=== PATIENT | female | born 1970 | race Two or more races ===

== ENCOUNTER 2017-04-05 08:17 | Day surgery (SDC) | payer BC, OTHER ==
--- NOTE | 2017-04-04 21:50 | Anethesia Preoperative Eval ---
Anesthesia Pre-op PMH/ROS General Date of Evaluation: Apr 04, 2017 Time of Evaluation: 21:48 Anesthesiologist: regina ASA Score: ASA 2 Mallampati Score Class I : Soft palate, uvula, fauces, pillars visible Class II: Soft palate, uvula, fauces visible Class III: Soft palate, base of uvula visible Class IV: Only hard plate visible Mallampati Classification: Class II Surgeon: eric Diagnosis: gi bleed Surgical Procedure: egd/colonoscopy Family History: no anesthesia problems Allergies: Coded Allergies: SULFAMETHOXAZOLE (Verified Allergy, Intermediate, SWELLING, 03/18/13) TRIMETHOPRIM (Verified Allergy, Intermediate, SWELLING, 03/18/13) Medications: see eMAR Past Medical History Endocrine: Reports: hypothyroidism PSxH Narrative: tonsillectomy, uterine fibroid sx Anesthesia Pre-op Phys. Exam Physician Exam Last Vital Signs Date Time Temp Pulse Resp B/P Pulse Ox O2 Delivery O2 Flow Rate FiO2 04/05/17 08:59 97.0 56 18 109/74 99 Room Air Constitutional: NAD Neurologic: CN 2-12 intact Cardiovascular: RRR Respiratory: CTA Gastrointestinal: S/NT/ND Airway Exam Mallampati Score: Class II MO: full Neck: supple TMD: 2fb ROM: full Teeth: intact Anesthesia Pre-op A/P Labs Labs Test 04/05/17 08:34 Urine HCG, Qualitative Negative Risk Assessment & Plan Assessment: asa2 Plan: mac Status Change Before Surgery: No Pre-Antibiotics Drug: na MARGO ADAIR Apr 04, 2017 21:50
[2017-04-05] VITALS (7 sets, daily range): BP systolic 101–113; BP diastolic 61–76
[~2017-04-05] VITALS: Ht 165.1 cm; Wt 56.7 kg
[~2017-04-05 08:17] MED LIST: LR 1000ml 1,000 ML IVLG SCH; SYNTHROID88 MCG ORAL
[2017-04-05] MEDS ORDERED: Propofol 10mg/ml 20ml IV ONE (09:40)
[2017-04-05] MEDS ORDERED: Lidocaine 1% MPF 10mg/ml 5ml ONE (09:40)
[2017-04-05] MEDS ORDERED: LR 1000ml ONE (09:40)
--- NOTE | 2017-04-05 09:41 | Short Stay Surgery H&P ---
History of Present Illness History of Present Illness Chief Complaint Anemia of iron deficiency, rectal bleeding/nausea. TARIQ Galeano is a 46 year old female who was admitted on for Preventive Colon, Gi Bleeding/rectal bleeding/nausea Patient History Allergies: Coded Allergies: SULFAMETHOXAZOLE (Verified Allergy, Intermediate, SWELLING, 03/18/13) TRIMETHOPRIM (Verified Allergy, Intermediate, SWELLING, 03/18/13) PAST MEDICAL HISTORY: (1) Uterine fibroid (2) Hypothyroid (3) Goiter Past Surgeries: Social History: Medication History Scheduled Levothyroxine Sodium* (Synthroid*), 88 MCG ORAL DAILY, (Reported) Review of Systems Cardiovascular: Reports: no symptoms Skeletal: Reports: no symptoms Gastrointestinal: Reports: other Genitourinary: Reports: no symptoms Neurologic: Reports: no symptoms Endocrine: Reports: thyroid Hematologic: Reports: no symptoms Physical Exam Vital Signs Last Vital Signs Date Time Temp Pulse Resp B/P Pulse Ox O2 Delivery O2 Flow Rate FiO2 04/05/17 08:59 97.0 56 18 109/74 99 Room Air Labs Laboratory Tests Test 04/05/17 08:34 Urine HCG, Qualitative Negative Skin: normal HENT: normal Heart: normal Lungs: normal Abdomen: normal Extremities: normal Genitourinary: normal Plan Plan of Care Upper and lower Gi endoscopies Preop Interventions None. Summary of Findings See the final reports. Final Diagnosis: Attestation Are the patient's medical conditions optimized for surgery? Attestation Response: yes JONATHAN REID Apr 05, 2017 09:41
--- NOTE | 2017-04-05 09:43 | Pre-Procedure Note/Attestation ---
Pre-Procedure Note/Attestation Complete Prior to Procedure Planned Procedure: left Procedure Narrative: Endoscopic exam of the upper and the lower GI tract. Indications for Procedure Pre-Operative Diagnosis: R/O peptic ulcer/tumors/colitis etc. Attestation I attest that I discussed the nature of the procedure; its benefits; risks and complications; and alternatives (and the risks and benefits of such alternatives ), prior to the procedure, with the patient (or the patient's legal loss prevention representative). I attest that, if there was a reasonable possibility of needing a blood transfusion, the patient (or the patient's legal loss prevention representative) was given the [place] [facility] [employer] [facility] standardized written summary, pursuant to the [place] Blood Safety Act ([place] Health and Safety Code # 1645, as amended). I attest that I re-evaluated the patient just prior to the surgery and that there has been no change in the patient's H&P, except as documented below: FRANKLINSAID Apr 05, 2017 09:42
[2017-04-05] MEDS ORDERED: LR 1000ml 1,000 ML IVLG SCH (09:58)
[2017-04-05] MEDS ORDERED: Atropine Inj 1mg/10ml Syr IV PRN (10:00)
[2017-04-05] MEDS ORDERED: Midazolam 2mg/2ml Inj IVP PRN (10:00)
[2017-04-05] MEDS ORDERED: DiphenhydrAMINE 50mg/ml Inj IVP PRN (10:00)
[2017-04-05] MEDS ORDERED: Hydromorphone 0.5mg/0.5ml inj IVP PRN (10:00)
--- NOTE | 2017-04-05 10:11 | 48 Hour Post Anesthesia Eval ---
MARGO ADAIR Apr 05, 2017 10:11
--- NOTE | 2017-04-05 10:11 | Immediate Post-Op Evaluation ---
Immediate Post-Op Evalulation Immediate Post-Op Evalulation Procedure: egd/colonoscopy Date of Evaluation: Apr 05, 2017 Time of Evaluation: 10:27 IV Fluids: lr 400ml Blood Products: none Estimated Blood Loss: negligible Blood Pressure Systolic: 108 Blood Pressure Diastolic: 65 Pulse Rate: 77 Respiratory Rate: 18 O2 Sat by Pulse Oximetry: 99 Temperature (Fahrenheit): 98.0 Pain Score (1-10): 0 Nausea: No Vomiting: No Complications none Patient Status: awake, reacts, patent Hydration Status: adequate Drug: MARGO Coleman Apr 05, 2017 10:11
--- NOTE | 2017-04-05 10:11 | Endoscopy Procedure Note ---
Endoscopy Procedure Note Indication for Procedure: Iron defieincy anemia/nausea. Procedures Performed: EGD - Completely normal Upper GI Endoscopy. No ulcers or tumors/bleeding sites were found. Random biospy from gastric body obtained., colonoscopy - Highly redundant left colon and poor colon prep without any source of GI bleeding site found as total colonoscopy upto the base of the cecum was normal. Specimen: yes Pt Tolerated Procedure Well: Yes Estimated Blood Loss: none Anesthesiologist: Dr. Scott Maya Anesthesia: moderate sedation Medication Given: see anesthesia record Implant(s) used?: No 50 yrs or older w/o bx or poly: No 10yrs. F/U not recommended: Yes If not recommended, why?: 10 yrs. F/U needed: Yes 18 years or older w/prev. colo: No <3yrs. since last colonoscopy: No Med reason:<3 yrs.: System Reason:<3 yrs.: Last colonoscopy >= to 3yrs: Yes JONATHAN REID Apr 05, 2017 10:11
--- NOTE | 2017-04-05 10:12 | Discharge Instructions ---
Discharge Instructions Discharge Instructions Follow up with: See the doctor after two weeks in the office. For Congestive Heart Failure Reminder Report to your physician any weight gain of 5 pounds or more in one week. FRANKLIN,JONATHAN Apr 05, 2017 10:12
--- NOTE | 2017-04-05 10:26 | 48 Hour Post Anesthesia Eval ---
Post Anesthesia Evaluation Procedure: egd/colonoscopy Date of Evaluation: Apr 05, 2017 Time of Evaluation: 10:30 Blood Pressure Systolic: 108 0: 65 Pulse Rate: 56 Respiratory Rate: 18 Temperature (Fahrenheit): 98.0 O2 Sat by Pulse Oximetry: 99 Airway: patent Nausea: No Vomiting: No Pain Intensity: 0 Hydration Status: adequate Cardiopulmonary Status: stable Mental Status/LOC: patient returned to baseline Post-Anesthesia Complications: none Follow-up care needed: N/A MARGO ADAIR Apr 05, 2017 10:26
--- NOTE | 2017-04-05 21:01 | Procedure Note ---
DATE OF PROCEDURE: 04/05/2017 PROCEDURE: Total colonoscopy. PREOPERATIVE DIAGNOSIS: History of iron deficiency anemia, rule out gastrointestinal bleeding site. POSTOPERATIVE DIAGNOSES: 1. Completely normal total colonoscopy without any evidence of gastrointestinal bleeding site as found. 2. Poor colonic preparation with high redundancy of the left colon. MEDICATION USED: Per Dr. Darian Maya. INSTRUMENT: GIF Olympus videocolonoscope. DESCRIPTION OF PROCEDURE: The patient after arriving in the endoscopy unit, was told about risks and benefits of the procedure, which she accepted and signed the informed consent. She was then put in the left lateral decubitus position. After adequate IV sedation, the scope was gently passed through the anal area, which revealed normal findings without any evidence of hemorrhoids, fissures, ulceration, etc. The rectum itself was completely normal and no evidence of any pathology was found. At this point, the scope was gradually passed through very redundant left colon. Long time was spent to go through straightening the left colon, however, there was no any pathology found, as there was also evidence of poor colonic preparation and the existence of liquidy stool, which had to be suctioned and irrigated. However as I mentioned, there was no any evidence of pathological site to explain the applicant's possible gastrointestinal bleeding, which does not seem to be the case at this point. After passing the scope through the left colon, introducing it into the splenic flexure, transverse colon, and finally right hepatic flexure, the scope was guided into the right colon all the way to the base of the cecum. All these areas remained to be completely normal. There was no any evidence of blood in the colon and the stools were green in color. At this point, within seven minutes, the scope was gradually pulled out and then reexamination of colonic wall looking for possibility of gastrointestinal bleeding source was negative. Finally, the procedure was terminated and the patient tolerated the procedure well and left the endoscopy room in a good condition. Said Terrence Rodriguez DR: ANTHONY JOB#: [id number] CC:
--- NOTE | 2017-04-05 21:01 | Operative Note - Dictated ---
DATE OF OPERATION: 04/05/2017 PROCEDURE: Esophagogastroduodenoscopy with biopsy. PREOPERATIVE DIAGNOSIS: History of iron deficiency anemia rule out gastrointestinal bleeding sites with the history of nausea. POSTOPERATIVE DIAGNOSIS: Completely normal upper gastrointestinal endoscopy. No evidence of any gastrointestinal bleeding source found in the upper gastrointestinal tract as examined by upper gastrointestinal endoscopy. Random biopsy from gastric body obtained. MEDICATION USED: Per Dr. Mckenzie. INSTRUMENT: GIF Olympus video upper gastrointestinal endoscope. DESCRIPTION OF PROCEDURE: The patient after arriving the endoscopy unit was told about the risks and benefits of the procedure, which she accepted and signed the informed consent. At this time, she was put in the left lateral decubitus position. After adequate IV sedation, scope was gently passed through the cricopharyngeal area lodged into the upper esophagus and gradually advanced towards the gastroesophageal junction. The entire length of the esophagus looked normal. No evidence of any abnormality. Bleeding site, ulcers, tumors, polyps, etc. were found. GE junction was also looked to be completely normal. No evidence of Gan's or hiatal hernia. At this point, the scope was advanced into the stomach. Gastric cavity was distended with insufflation of air and gradually the areas of the fundus and the body and the antrum. First and second portion of duodenum were found to be completely normal as we examined. There was no ulcers, tumors, hemangioma, polyps, etc. A retroflexion maneuver was applied in the area of the fundus of the stomach, which revealed normal findings. At this point, one random biopsy from gastric body obtained and subsequently the procedure was terminated. The patient tolerated the procedure well. Said Terrence Rodriguez DR: AMPARO JOB#: [id number] CC:
== END 2017-04-05 11:45 | disposition home or self-care (01) ==
LOC: GAS 08:17
DX: D50.9 Iron deficiency anemia, unspecified (principal); K29.50 Unspecified chronic gastritis without bleeding; Q43.8 Other specified congenital malformations of intestine; E03.9 Hypothyroidism, unspecified; E04.9 Nontoxic goiter, unspecified; D25.9 Leiomyoma of uterus, unspecified; Z88.2 Allergy status to sulfonamides; Z88.8 Allergy status to other drugs, medicaments and biological substances
CPT/HCPCS: 43239; 45378; 81025; J2704; J7120; 94003; 94150